=== PATIENT | female | born 1970 | race Caucasian/White ===

== ENCOUNTER 2016-02-29 11:01 | Emergency (ER) ==
--- NOTE | 2016-02-29 11:31 | ED EKG INTERP ---
EKG Interpretation - EKG Time of EKG reading by physician:: 11:26 EKG Read and Signed by:: Yunior Alejandro EKG Interpretation (*Must complete 3 of following elements*): Abnormal Rate: 97 Rhythm: NSR [place]: normal QRS: normal [place] Interval: normal ST Wave: non-specific ST changes
[2016-02-29 11:50] LABS: MANUAL DIFF NEEDED? NO
[2016-02-29 11:53] LABS: BASO% 0.7 % (0.0-0.8); EOS% 0.9 % (0.0-10.0); HEMATOCRIT 48.4 % (37.0-47.0); HEMOGLOBIN 16.4 g/dL (12.0-16.0); IMM GRAN# 0.07 X1000 (0.0-0.04); IMM GRAN% 0.6 % (0.0-0.5); LYMPH# 5.16 X1000 (1.2-3.4); LYMPH% 47.3 % (20.5-51.1); MCH 30.7 PG (27-31); MCHC 33.9 g/dL (33-37); MCV 90.6 FL (81-99); MONO# 0.63 X1000 (0.11-0.59); MONO% 5.8 % (1.7-9.3); MPV 9.3 FL (7.4-10.4); NEUT% 44.7 % (42.2-75.2); PLT 461 X1000 (130-400); RBC 5.34 XMIL (4.2-5.4)
[2016-02-29 12:04] LABS: INR 0.95; PROTIME 10.1 Seconds (9.2-11.7); PTT 28.2 Seconds (22.0-36.0)
--- NOTE | 2016-02-29 12:13 | Diag Imaging Result Document ---
PROCEDURE NAME: CHEST-2 VIEWS - 02/29/2016 CHEST X-RAY 2 VIEWS: COMPARISON: 01/23/2015. FINDINGS: The lungs are normally expanded and clear. Heart size and mediastinal contours are normal. No pneumothorax or pleural effusion. IMPRESSION: Negative exam.
--- NOTE | 2016-02-29 12:36 | EKG Report ---
Test Performed on : 02/29/2016 11:26:20 AM Test Reason : Chest Pain Blood Pressure : / mmHG Vent. Rate : 097 BPM Atrial Rate : 097 BPM P-R Int : 142 ms QRS Dur : 080 ms QT Int : 366 ms P-R-T Axes : 056 038 004 degrees QTc Int : 464 ms Normal sinus rhythm. Possible Left atrial enlargement ST & T wave abnormality, consider inferior ischemia Abnormal ECG No previous ECGs available Unconfirmed Result
[2016-02-29 12:44] LABS: AGAP 18; ALBUMIN 5.5 g/dL (3.5-5.0); ALKALINE PHOSPHATASE 92 U/L (32-104); BUN 9 mg/dL (8-22); CHLORIDE 91 mmol/L (98-107); COSMO 274; GOT 22 U/L (10-30); GPT 26 U/L (10-36); MAGNESIUM 2.1 mg/dL (1.5-2.7); SODIUM 138 mmol/L (136-145); TCO2 29 mmol/L (25-35); TOTAL BILIRUBIN 0.36 mg/dL (0.20-1.00); TOTAL PROTEIN 9.4 g/dL (6.3-8.3)
[2016-02-29 12:53] LABS: CK PROFILE 347 U/L (24-173)
[2016-02-29 13:10] LABS: CK INDEX 0.4 (0.0-2.5); CK-MB 1.41 ng/mL (0.0-5.0)
[2016-02-29] MEDS ORDERED: STADOL IV ONE (15:46)
[2016-02-29] MEDS ORDERED: PHENERGAN IM ONE (15:47)
[2016-02-29] MEDS ORDERED: NUBAIN IM ONE (16:05)
[2016-02-29 16:06] VITALS: BP 143/91
[2016-02-29] MEDS ORDERED: KLOR-CON PO ONE (16:11)
[2016-02-29] MEDS ORDERED: POTASSIUM CHLORIDE 20% LIQUID PO ONE (16:11)
--- NOTE | 2016-02-29 16:18 | PROVIDER DOCUMENTATION ---
HPI-Headache - General Chief Complaint: B/P Problems Stated Complaint: ELEVATED BP Time Seen by Provider: 02/29/16 15:34 Source: patient Allergies/Adverse Reactions: Patient Allergies Allergy/AdvReac Type Severity Reaction Status Date / Time dihydroergotamine mesylate * Allergy Severe ANAPHYLAXIS Verified 02/29/16 16:13 [From Dhe] Iodinated Contrast Media - Allergy Severe ANAPHYLAXIS Verified 02/29/16 16:13 Oral and ketorolac tromethamine * Allergy Severe ANYPHYLAXIS Verified 02/29/16 16:13 [From Toradol] metoclopramide HCl * Allergy Severe ANAPHYLAXIS Verified 02/29/16 16:13 [From Reglan] prednisone Allergy Severe ANAPHYLAXIS Verified 02/29/16 16:13 acetaminophen [From Lortab] Allergy Mild HIVES Verified 02/29/16 16:13 Penicillins Allergy Unknown Unknown Verified 02/29/16 16:13 diphenhydramine HCl * Allergy ELEVATED BP Verified 02/29/16 16:13 [From Benadryl] hydrocodone bitartrate * Allergy HIVES Verified 02/29/16 16:13 [From Lortab] iodine Allergy RASH Verified 02/29/16 16:13 methylprednisolone sodium Allergy SWELLING Verified 02/29/16 16:13 succ... * [From Solu-Medrol] prochlorperazine edisylate * Allergy SWELLING/HI Verified 02/29/16 16:13 [From Compazine] VES prochlorperazine maleate * Allergy SWELLING/HI Verified 02/29/16 16:13 [From Compazine] VES sumatriptan [From Imitrex] Allergy ANAPHYLAXIS Verified 02/29/16 16:13 sumatriptan succinate * Allergy ANAPHYLAXIS Verified 02/29/16 16:13 [From Imitrex] Home Medications: Amlodipine [Norvasc] 10 mg PO DAILY 04/29/14 Clonazepam [Klonopin] 1 mg PO BID 04/29/14 Clonidine [Catapres] 0.3 mg PO 4XDAY 04/29/14 Lisinopril 40 mg PO DAILY 04/29/14 Minoxidil 10 mg PO TID 04/29/14 Spironolactone [Aldactone] 100 mg PO DAILY 04/29/14 Atorvastatin Calcium [Lipitor] 80 mg PO HS 08/18/14 Nitroglycerin Sl [Nitroglycerin] 0.4 mg SL TID 01/23/15 Furosemide [Lasix] 80 mg PO BID 05/31/15 Potassium Chloride [Klor-Con] 20 meq PO BID 05/31/15 Labetalol HCl 200 mg PO BID 06/05/15 Amiloride [Midamor] 10 mg PO DAILY 08/16/15 Gabapentin [Neurontin] 300 mg PO BID 08/16/15 Lacosamide [Vimpat] 50 mg PO BID 01/12/16 - History of Present Illness-Headache Nature of Presenting Problem: patient is a 45 yo f that is well know to the ER with her typical headache that began this morning she has associated symptoms of n/v. she is followed at [facility] for her BP. Headache Location: reports: global Quality of Pain: reports: aching, dull Severity: reports: moderate Onset/Duration: reports: gradual, this morning Timing: reports: still present, constant Headache Context: reports: nothing Headache History: reports: frequent headaches, chronic headaches, history of migraines Headache severity at the maximum: moderate Preceding Symptoms: denies: scotoma Headache Exacerbated by:: reports: light Modifying Factors: improves with: other (light worsening) Associated Symptoms: reports: headache, nausea, vomiting. denies: fainting, dizziness, seizures, sleepy, slurred speech, vision changes, weakness Similar Symptoms Previously?: Yes Recently seen or treated by another doctor?: No Review of Systems - Adult - REVIEW OF SYSTEMS - ADULT Constitutional: denies: chills, fever Eyes: denies: double vision Ears, Nose, Mouth & Throat: denies: ear pain, sinus problem, throat pain, throat swelling Cardiovascular: denies: chest pain, palpitations, syncope Respiratory: denies: chronic cough, cough, shortness of breath, wheezing Gastrointestinal: reports: nausea, vomiting. denies: abdominal pain, diarrhea Genitourinary: reports: no symptoms reported Musculoskeletal: reports: no symptoms reported Integumentary: reports: no symptoms reported Neurological: reports: headache/migraines. denies: dizziness/vertigo, seizure Psychiatric: reports: no symptoms reported Endocrine: reports: no symptoms reported Hematologic/Lymphatic: reports: no symptoms reported Allergic/Immunologic: reports: no symptoms reported All Other Systems: Reviewed and Negative Past History - Adult - PAST MEDICAL HISTORY-ADULT Review of Records: reports: Old Records Reviewed, Nursing Assessment Review, Medications Reviewed, Social history reviewed & non-contributory. Major Childhood Illnesses: reports: denies history Cardiovascular: reports: cardiac disease (left ventricle damage), CHF, HTN, hyperlipidemia Respiratory: reports: lung disease (pulm htn) Gastrointestinal: reports: GERD, GI bleed Obstetrical/Gynecological: reports: ectopic , endometriosis Genitourinary: reports: kidney disease Musculoskeletal: reports: denies history Neurological: reports: headaches/migraines, Seizures/Epilepsy, TIA, other Psychiatric: reports: other Endocrine/Immune: reports: denies history Other Conditions: reports: denies history Additional History: Freq ER visits - PRIOR SURGERIES/PROCEDURES Surgical/Procedure History: reports: reviewed, not pertinent, hysterectomy, BTL , , tonsillectomy, orthopedic (extremity) (right knee; wrist), other ( arthroscopy; carpal tunnel, exploratory lap) - PRIOR HOSPITALIZATIONS Prior Hospitalizations: reports: for other non-related - IMMUNIZATION STATUS Childhood Immunizations: UTD, See Nurse Assessment Flu Vaccine: See Nurse Assessment - FAMILY HISTORY Family History: CAD under 55yo, migraines, HTN Physical Exam- Neurological - Physical Exam-Neuro Initial Vital Signs Reviewed: Yes General Appearance: alert, no apparent distress Eye Exam: bilateral eye: normal inspection, PERRL HENMT: normocephalic/atraumatic, moist mucous membranes, normal ENT inspection Head Injury: no evidence of injury. negative: flap, lacerations Neck: full range of motion, normal inspection. negative: lymphadenopathy Respiratory: lungs clear, normal breath sounds, no respiratory distress, no accessory muscle use Cardiovascular: no gallop, no murmur, tachycardia Abdominal Exam: normal bowel sounds, non tender, soft, no organomegaly, no pulsatile mass Lymphatic: no adenopathy. 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 Exam: normal hearing, normal speech, PERRL Motor/Sensory: no motor deficit, no sensory deficit Neurologic: grossly normal, no motor/sensory deficits Integumentary: normal color, warm/dry Psych/Mental Status: normal mood/affect, normal thought content, normal thought process, oriented x 3 - Glascow Coma Scale Best Eye Response: (3) open to voice Best Motor Response: (6) obeys commands Total Glascow Score: 15 Progress - PLAN OF CARE/RESULTS Progress/Plan/Lab Results: Vital Signs Temp Pulse Resp BP Pulse Ox 02/29/16 16:00 97 H 25 H 143/91 97 02/29/16 11:20 98.2 F 126 H 18 152/115 100 dihydroergotamine mesylate * [From Dhe] Allergy (Severe, Verified 02/29/16 16:13 ) ANAPHYLAXIS Iodinated Contrast Media - Oral and Allergy (Severe, Verified 02/29/16 16:13) ANAPHYLAXIS ketorolac tromethamine * [From Toradol] Allergy (Severe, Verified 02/29/16 16:13 ) ANYPHYLAXIS metoclopramide HCl * [From Reglan] Allergy (Severe, Verified 02/29/16 16:13) ANAPHYLAXIS prednisone Allergy (Severe, Verified 02/29/16 16:13) ANAPHYLAXIS acetaminophen [From Lortab] Allergy (Mild, Verified 02/29/16 16:13) HIVES Penicillins Allergy (Unknown, Verified 02/29/16 16:13) Unknown diphenhydramine HCl * [From Benadryl] Allergy (Verified 02/29/16 16:13) ELEVATED BP hydrocodone bitartrate * [From Lortab] Allergy (Verified 02/29/16 16:13) HIVES iodine Allergy (Verified 02/29/16 16:13) RASH methylprednisolone sodium succ... * [From Solu-Medrol] Allergy (Verified 16:13) SWELLING prochlorperazine edisylate * [From Compazine] Allergy (Verified 02/29/16 16:13) SWELLING/HIVES prochlorperazine maleate * [From Compazine] Allergy (Verified 02/29/16 16:13) SWELLING/HIVES sumatriptan [From Imitrex] Allergy (Verified 02/29/16 16:13) ANAPHYLAXIS sumatriptan succinate * [From Imitrex] Allergy (Verified 02/29/16 16:13) ANAPHYLAXIS Amlodipine [Norvasc] 10 mg PO DAILY 04/29/14 Clonazepam [Klonopin] 1 mg PO BID 04/29/14 Clonidine [Catapres] 0.3 mg PO 4XDAY 04/29/14 Lisinopril 40 mg PO DAILY 04/29/14 Minoxidil 10 mg PO TID 04/29/14 Spironolactone [Aldactone] 100 mg PO DAILY 04/29/14 Atorvastatin Calcium [Lipitor] 80 mg PO HS 08/18/14 Nitroglycerin Sl [Nitroglycerin] 0.4 mg SL TID 01/23/15 Furosemide [Lasix] 80 mg PO BID 05/31/15 Potassium Chloride [Klor-Con] 20 meq PO BID 05/31/15 Labetalol HCl 200 mg PO BID 06/05/15 Levetiracetam [Keppra] 1,000 mg PO BID #120 tablet 06/05/15 Amiloride [Midamor] 10 mg PO DAILY 08/16/15 Gabapentin [Neurontin] 300 mg PO BID 08/16/15 Promethazine [Phenergan] 25 mg SD Q6H PRN PRN #12 supp 08/16/15 Lacosamide [Vimpat] 50 mg PO BID 01/12/16 Ondansetron [Zofran Odt] 4 mg PO Q8H PRN PRN #20 tab.rapdis 02/29/16 Laboratory 02/29/16 02/29/16 02/29/16 11:35 11:35 11:35 WBC RBC Hgb Hct MCV MCH MCHC RDW Std Deviation Plt Count MPV Immature Gran % (Auto) Neut % (Auto) Lymph % (Auto) [place] % (Auto) Eos % (Auto) Baso % (Auto) Immature Gran # (Auto) Neut # (Auto) Lymph # (Auto) [place] # (Auto) Eos # (Auto) Baso # (Auto) PT 10.1 INR 0.95 PTT (Actin FS) 28.2 D-Dimer 0.50 Sodium Potassium Chloride Carbon Dioxide Anion Gap BUN Creatinine Estimated GFR/1.73 m2 BUN/Creatinine Ratio Glucose Calculated Osmolality Calcium Magnesium Total Bilirubin AST ALT Alkaline Phosphatase Creatine Kinase Creatine Kinase Index CK-MB (CK-2) Troponin T < 0.010 Fra-[id number]-[id number] Pept Total Protein Albumin Globulin Albumin/Globulin Ratio 02/29/16 02/29/16 02/29/16 11:35 11:35 11:35 WBC 10.91 H RBC 5.34 Hgb 16.4 H Hct 48.4 H MCV 90.6 MCH 30.7 MCHC 33.9 RDW Std Deviation 12.8 Plt Count 461 H MPV 9.3 Immature Gran % (Auto) 0.6 H Neut % (Auto) 44.7 Lymph % (Auto) 47.3 [place] % (Auto) 5.8 Eos % (Auto) 0.9 Baso % (Auto) 0.7 Immature Gran # (Auto) 0.07 H Neut # (Auto) 4.87 Lymph # (Auto) 5.16 H [place] # (Auto) 0.63 H Eos # (Auto) 0.10 Baso # (Auto) 0.08 PT INR PTT (Actin FS) D-Dimer Sodium 138 Potassium 3.0 L Chloride 91 L Carbon Dioxide 29 Anion Gap 18 BUN 9 Creatinine 0.8 Estimated GFR/1.73 m2 > 60 BUN/Creatinine Ratio 11 Glucose 96 Calculated Osmolality 274 Calcium 10.0 Magnesium 2.1 Total Bilirubin 0.36 AST 22 ALT 26 Alkaline Phosphatase 92 Creatine Kinase 347 H Creatine Kinase Index 0.4 CK-MB (CK-2) 1.41 Troponin T Idl-L-Yryhnjtjvhh Pept 26 Total Protein 9.4 H Albumin 5.5 H Globulin 3.9 Albumin/Globulin Ratio 1.4 Orders Category Date Time Status CHEST-2 VIEWS [RAD] Stat Exams 02/29/16 11:24 Draft CBC WITH ELECTRONIC DIFF [HEME] Stat Lab 02/29/16 11:35 Completed CK PROFILE [SP CHEM] Stat Lab 02/29/16 11:35 Completed COMPREHENSIVE METABOLIC PANEL [CHEM] Stat Lab 02/29/16 11:35 [address] D-D[address]ER [address] [COAG] Stat Lab 02/29/16 11:35 Completed MAGNESIUM [CHEM] Stat Lab 02/29/16 11:35 Completed PRO B-NATRIURETIC PEPTIDE Stat Lab 02/29/16 11:35 Completed PROTIME WITH INR [COAG] Stat Lab 02/29/16 11:35 Completed PTT [COAG] Stat Lab 02/29/16 11:35 Completed TROPONIN T Stat Lab 02/29/16 11:35 Completed Butorphanol [Stadol] Med 02/29/16 15:46 Discontinued 2 mg IV NOW ONE Nalbuphine [Nubain] Med 02/29/16 16:05 Discontinued 20 mg IM NOW ONE Potassium Chloride 20% Liquid Med 02/29/16 16:11 Discontinued 40 meq PO NOW ONE Potassium Chloride E.r. [Klor-Con] Med 02/29/16 16:11 Discontinued 60 meq PO NOW ONE Promethazine [Phenergan] Med 02/29/16 15:47 Discontinued 25 mg IM NOW ONE EKG [EKG] Stat Ther 02/29/16 11:24 Draft pt will be d/c home f/u with pcp, pt was clinically and neurologically stable Departure - Departure Time of Disposition Order: 16:19 DIAGNOSIS: Hypokalemia Headache Qualifiers: Headache type: unspecified Headache chronicity pattern: chronic headache Intractability: not intractable Qualified Code(s): R51 - Headache Hypertension Qualifiers: Hypertension type: essential hypertension Qualified Code(s): I10 - Essential ( primary) hypertension Disposition: HOME 01 Certified Medical Emergency: Emergent Condition: Stable Additional Instructions: ED Follow Up Instructions: You have been treated by a care provider in the Emergency Department. These instructions are being provided to you so you can have an understanding of how to care for yourself upon discharge. Upon discharge from the Emergency Department, you are responsible for making arrangements for follow-up care by a physician of your choice. Take all prescribed medications as directed. Return to the Emergency Department immediately for any new or worsening symptoms. You may call the Physician Referral phone number at [phone] to obtain a list of Physicians who are taking new patients. Prescriptions: Ondansetron [Zofran Odt] 4 mg PO Q8H PRN PRN #20 tab.rapdis PRN Reason: Vomiting Referrals: Varun Ayala MD [Primary Care Provider] - Call for Appoint. 1-2days Instructions: Migraine Headache, [id number], Hypokalemia, Hypertension, Easy- to-Read Attestation - Scribe Verification/Attestation Scribe:: Naldo Montoya Acting as Scribe for:: Yunior Alejandro Scribe documention review:: This chart was documented by a scribe and accurately reflects the service the provider performed and the decisions made by the provider. Physician Attestation - Physician Attestation I, the provider, attest to the following statement:: Yunior Alejandro Physician documentation Attestation:: This documentation recorded by the scribe accurately reflects the service I personally performed and the decisions made by me.
== END 2016-02-29 16:55 | disposition home or self-care (01) ==
LOC: ED 11:01
DX: I10 Essential (primary) hypertension (principal); R51 Headache; E87.6 Hypokalemia; I50.9 Heart failure, unspecified; E78.5 Hyperlipidemia, unspecified; I27.2 Other secondary pulmonary hypertension; K21.9 Gastro-esophageal reflux disease without esophagitis; N80.9 Endometriosis, unspecified; R56.9 Unspecified convulsions; Z86.73 Personal history of transient ischemic attack (TIA), and cerebral infarction without residual deficits; Z79.899 Other long term (current) drug therapy; Z82.49 Family history of ischemic heart disease and other diseases of the circulatory system
CPT/HCPCS: 71020; 80053; 82550; 82553; 83735; 83880; 84484; 85025; 85379; 85610; 85730; 93005; 96372; J0595; J2300; J2550

== ENCOUNTER 2016-04-27 18:11 | Emergency (ER) ==
[2016-04-27] MEDS ORDERED: PHENERGAN PO ONE (18:58)
[2016-04-27] MEDS ORDERED: NORCO-5 PO ONE (18:58)
[2016-04-27] MEDS ORDERED: NUBAIN IM ONE (19:14)
[2016-04-27] MEDS ORDERED: PHENERGAN IM ONE (19:14)
--- NOTE | 2016-04-27 20:05 | PROVIDER DOCUMENTATION ---
HPI-Head Injury - General Chief Complaint: Fall Stated Complaint: FACIAL INJURY Time Seen by Provider: 04/27/16 18:54 Source: patient, family Allergies/Adverse Reactions: Patient Allergies Allergy/AdvReac Type Severity Reaction Status Date / Time dihydroergotamine mesylate * Allergy Severe ANAPHYLAXIS Verified 04/18/16 17:20 [From Dhe] Iodinated Contrast Media - Allergy Severe ANAPHYLAXIS Verified 04/18/16 17:20 Oral and ketorolac tromethamine * Allergy Severe ANYPHYLAXIS Verified 04/18/16 17:20 [From Toradol] metoclopramide HCl * Allergy Severe ANAPHYLAXIS Verified 04/18/16 17:20 [From Reglan] prednisone Allergy Severe ANAPHYLAXIS Verified 04/18/16 17:20 acetaminophen [From Lortab] Allergy Mild HIVES Verified 04/18/16 17:20 Penicillins Allergy Unknown Unknown Verified 04/18/16 17:20 diphenhydramine HCl * Allergy ELEVATED BP Verified 04/18/16 17:20 [From Benadryl] hydrocodone bitartrate * Allergy HIVES Verified 04/18/16 17:20 [From Lortab] iodine Allergy RASH Verified 04/18/16 17:20 methylprednisolone sodium Allergy SWELLING Verified 04/18/16 17:20 succ... * [From Solu-Medrol] prochlorperazine edisylate * Allergy SWELLING/HI Verified 04/18/16 17:20 [From Compazine] VES prochlorperazine maleate * Allergy SWELLING/HI Verified 04/18/16 17:20 [From Compazine] VES sumatriptan [From Imitrex] Allergy ANAPHYLAXIS Verified 04/18/16 17:20 sumatriptan succinate * Allergy ANAPHYLAXIS Verified 04/18/16 17:20 [From Imitrex] Home Medications: Home Medication List Medication Instructions Recorded Confirmed Last Taken Type Amlodipine [Norvasc] 10 mg PO DAILY 04/29/14 04/04/16 04/04/16 History Clonazepam [Klonopin] 1 mg PO BID 04/29/14 04/04/16 01/12/16 06:00 History Clonidine [Catapres] 0.3 mg PO 4XDAY 04/29/14 04/04/16 04/04/16 15:00 History Lisinopril 40 mg PO DAILY 04/29/14 04/04/16 04/04/16 07:30 History Minoxidil 10 mg PO TID 04/29/14 04/04/16 04/04/16 11:45 History Spironolactone [Aldactone] 100 mg PO DAILY 04/29/14 04/04/16 04/04/16 07:30 History Atorvastatin Calcium [Lipitor] 80 mg PO HS 08/18/14 04/04/16 04/03/16 History Nitroglycerin Sl [Nitroglycerin] 0.4 mg SL TID 01/23/15 04/04/16 04/04/16 11:45 History Potassium Chloride [Klor-Con] 40 meq PO BID 05/31/15 04/04/16 04/04/16 11:45 History Labetalol HCl 300 mg PO BID 06/05/15 04/04/16 04/04/16 07:30 History Levetiracetam [Keppra] 1,000 mg PO BID #120 tablet 06/05/15 04/04/16 04/04/16 06 :30 Rx Amiloride [Midamor] 10 mg PO DAILY 08/16/15 04/02/16 04/04/16 History Gabapentin [Neurontin] 300 mg PO BID 08/16/15 04/04/16 2 Days Ago History Lacosamide [Vimpat] 100 mg PO BID 01/12/16 04/04/16 04/04/16 06:30 History Promethazine [Phenergan] 50 mg MD Q6H PRN PRN 04/04/16 04/04/16 Unknown History - History of Present Illness-Head Injury Nature of Presenting Problem: This pt, who has frequent falls and uses a walker, presents today after tripping and striking the right side of her face on a door. No LOC. No laceration. No vision changes. There is mild swelling and bruising to area. No other injuries or complaints. Head Injury Location: reports: temporal Other injuries associated with incident:: reports: head Quality of Pain: reports: aching Severity: reports: mild Onset/Duration: reports: just prior to arrival Timing: reports: still present Method of Injury: reports: direct blow Any recent trauma/injury?: reports: minor, to head Loss of Consciousness: no loss of consciousness Similar Symptoms Previously?: Yes Recently seen or treated by another doctor?: No Review of Systems - Adult - REVIEW OF SYSTEMS - ADULT Constitutional: reports: no symptoms reported. denies: chills, fatique Eyes: reports: no symptoms reported. denies: discharge, dry eyes Ears, Nose, Mouth & Throat: reports: no symptoms reported. denies: ear discharge, ear pain Cardiovascular: reports: no symptoms reported. denies: chest pain, edema Respiratory: reports: no symptoms reported. denies: chronic cough, cough Gastrointestinal: reports: no symptoms reported. denies: abdominal pain, hematemesis Genitourinary: reports: no symptoms reported. denies: dysuria, discharge Musculoskeletal: reports: no symptoms reported. denies: bone pain, back pain Integumentary: reports: see HPI. denies: mole changes, nail changes Neurological: reports: no symptoms reported. denies: ataxia, dizziness/vertigo , headache/migraines Psychiatric: reports: no symptoms reported. denies: anxiety, anti-depressant use Endocrine: reports: no symptoms reported Hematologic/Lymphatic: reports: no symptoms reported Allergic/Immunologic: reports: no symptoms reported All Other Systems: Reviewed and Negative Past History - Adult - PAST MEDICAL HISTORY-ADULT Review of Records: reports: Old Records Reviewed, Nursing Assessment Review, Medications Reviewed, Social history reviewed & non-contributory. Major Childhood Illnesses: reports: denies history Cardiovascular: reports: cardiac disease (left ventricle damage), CHF, HTN, hyperlipidemia Respiratory: reports: lung disease (pulm htn) Gastrointestinal: reports: GERD, GI bleed Obstetrical/Gynecological: reports: ectopic , endometriosis Genitourinary: reports: kidney disease Musculoskeletal: reports: denies history Neurological: reports: headaches/migraines, Seizures/Epilepsy, TIA, other Psychiatric: reports: other Endocrine/Immune: reports: denies history Other Conditions: reports: denies history Additional History: Freq ER visits - PRIOR SURGERIES/PROCEDURES Surgical/Procedure History: reports: reviewed, not pertinent, hysterectomy, BTL , , tonsillectomy, orthopedic (extremity) (right knee; wrist), other ( arthroscopy; carpal tunnel, exploratory lap) - PRIOR HOSPITALIZATIONS Prior Hospitalizations: reports: for other non-related - IMMUNIZATION STATUS Childhood Immunizations: See Nurse Assessment Flu Vaccine: See Nurse Assessment - FAMILY HISTORY Family History: CAD under 55yo, migraines, HTN Physical Exam- Neurological - Physical Exam-Neuro Initial Vital Signs Reviewed: Yes General Appearance: appears well, alert, no apparent distress Eye Exam: bilateral eye: normal inspection, PERRL, EOMI HENMT: moist mucous membranes, normal ENT inspection, other (mild swelling and bruising to R temporal area) Head Injury: contusions, swelling, tenderness. negative: active bleeding, flap , lacerations Neck: non-tender, full range of motion, supple, normal inspection. negative: C- spine tenderness, limited range of motion, lymphadenopathy, meningismus Respiratory: chest non-tender, lungs clear Cardiovascular: normal peripheral pulses, regular rate, rhythm Abdominal Exam: normal bowel sounds, non tender, soft 3d technologist Exam: normal hearing, normal speech, PERRL. negative: abnormal speech, facial asymmetry, facial droop, facial paresthesias, facial weakness, gaze palsy , tongue deviation to R, tongue deviation to L Coordination/Gait: normal finger to nose Motor/Sensory: no motor deficit, no sensory deficit. negative: sensory deficit , weak motor strength RUE, weak motor strength LUE, weak motor strength RLE, weak motor strength LLE Neurologic: 3d technologist II-XII nml as tested, no motor/sensory deficits Integumentary: normal turgor, warm/dry, swelling, tenderness Psych/Mental Status: normal mood/affect, normal thought content, normal thought process, oriented x 3 - Glascow Coma Scale Best Eye Response: (4) open spontaneously Best Verbal Response: (5) oriented Best Motor Response: (6) obeys commands Total Glascow Score: 15 Progress - PLAN OF CARE/RESULTS Progress/Plan/Lab Results: Orders Category Date Time Status FACIAL BONES [RAD] Stat Exams 04/27/16 18:59 Taken Hydrocodone/APAP 5 mg/325 mg [Mcdowell-5] Med 04/27/16 18:58 Discontinued 1 each PO NOW ONE Nalbuphine [Nubain] Med 04/27/16 19:14 Discontinued 10 mg IM NOW ONE Promethazine [Phenergan] Med 04/27/16 19:14 Discontinued 25 mg IM NOW ONE Promethazine [Phenergan] Med 04/27/16 18:58 Discontinued 25 mg PO NOW ONE Vital Signs Temp Pulse Resp BP Pulse Ox 04/27/16 18:24 98.1 F 86 16 169/99 98 dihydroergotamine mesylate * [From Dhe] Allergy (Severe, Verified 04/18/16 17:20 ) ANAPHYLAXIS Iodinated Contrast Media - Oral and Allergy (Severe, Verified 04/18/16 17:20) ANAPHYLAXIS ketorolac tromethamine * [From Toradol] Allergy (Severe, Verified 04/18/16 17:20 ) ANYPHYLAXIS metoclopramide HCl * [From Reglan] Allergy (Severe, Verified 04/18/16 17:20) ANAPHYLAXIS prednisone Allergy (Severe, Verified 04/18/16 17:20) ANAPHYLAXIS acetaminophen [From Lortab] Allergy (Mild, Verified 04/18/16 17:20) HIVES Penicillins Allergy (Unknown, Verified 04/18/16 17:20) Unknown diphenhydramine HCl * [From Benadryl] Allergy (Verified 04/18/16 17:20) ELEVATED BP hydrocodone bitartrate * [From Lortab] Allergy (Verified 04/18/16 17:20) HIVES iodine Allergy (Verified 04/18/16 17:20) RASH methylprednisolone sodium succ... * [From Solu-Medrol] Allergy (Verified 17:20) SWELLING prochlorperazine edisylate * [From Compazine] Allergy (Verified 04/18/16 17:20) SWELLING/HIVES prochlorperazine maleate * [From Compazine] Allergy (Verified 04/18/16 17:20) SWELLING/HIVES sumatriptan [From Imitrex] Allergy (Verified 04/18/16 17:20) ANAPHYLAXIS sumatriptan succinate * [From Imitrex] Allergy (Verified 04/18/16 17:20) ANAPHYLAXIS Amlodipine [Norvasc] 10 mg PO DAILY 04/29/14 Clonazepam [Klonopin] 1 mg PO BID 04/29/14 Clonidine [Catapres] 0.3 mg PO 4XDAY 04/29/14 Lisinopril 40 mg PO DAILY 04/29/14 Minoxidil 10 mg PO TID 04/29/14 Spironolactone [Aldactone] 100 mg PO DAILY 04/29/14 Atorvastatin Calcium [Lipitor] 80 mg PO HS 08/18/14 Nitroglycerin Sl [Nitroglycerin] 0.4 mg SL TID 01/23/15 Potassium Chloride [Klor-Con] 40 meq PO BID 05/31/15 Labetalol HCl 300 mg PO BID 06/05/15 Levetiracetam [Keppra] 1,000 mg PO BID #120 tablet 06/05/15 Amiloride [Midamor] 10 mg PO DAILY 08/16/15 Gabapentin [Neurontin] 300 mg PO BID 08/16/15 Lacosamide [Vimpat] 100 mg PO BID 01/12/16 Promethazine [Phenergan] 50 mg MD Q6H PRN PRN 04/04/16 - XRAY 1 XRAY Study: Facial Bones XRAY Interpretation: nad (myself and DR. Martinez) Departure - Departure Time of Disposition Order: 20:04 DIAGNOSIS: Contusion of face Qualifiers: Encounter type: initial encounter Qualified Code(s): S00.83XA - Contusion of other part of head, initial encounter Disposition: HOME 01 Certified Medical Emergency: Urgent Condition: Good Additional Instructions: Ice area. Follow up with your primary care provider. ED Follow Up Instructions: You have been treated by a care provider in the Emergency Department. These instructions are being provided to you so you can have an understanding of how to care for yourself upon discharge. Upon discharge from the Emergency Department, you are responsible for making arrangements for follow-up care by a physician of your choice. Take all prescribed medications as directed. Return to the Emergency Department immediately for any new or worsening symptoms. You may call the Physician Referral phone number at [phone] to obtain a list of Physicians who are taking new patients. Attestation - Physician/ MALCOLM Attestation Patient care was provided by Advanced Practice Provider:: Yes Advanced Practice Provider:: Juan Beal Advanced Practice Provider documentation review:: The Mid-level provider documentation, treatment plan and medical decision making was reviewed by the physician who agrees with all treatment and medical decision making by the P.
[2016-04-27 20:23] VITALS: BP 153/104
--- NOTE | 2016-04-28 07:12 | Diag Imaging Result Document ---
PROCEDURE NAME: FACIAL BONES - 04/27/2016 FACIAL BONES, FOUR VIEWS: FINDINGS: No sinus opacification. No air fluid levels. No facial fracture or dislocation identified. IMPRESSION: No facial fracture. If clinical suspicion persists then a CT is recommended.
== END 2016-04-27 20:23 | disposition home or self-care (01) ==
LOC: P.ED 18:11
DX: S00.83XA Contusion of other part of head, initial encounter (principal); S09.90XA Unspecified injury of head, initial encounter; R29.6 Repeated falls; W01.0XXA Fall on same level from slipping, tripping and stumbling without subsequent striking against object, initial encounter; R51 Headache; I10 Essential (primary) hypertension; E78.5 Hyperlipidemia, unspecified; K21.9 Gastro-esophageal reflux disease without esophagitis; R56.9 Unspecified convulsions; Z86.73 Personal history of transient ischemic attack (TIA), and cerebral infarction without residual deficits; R22.0 Localized swelling, mass and lump, head; Z79.899 Other long term (current) drug therapy
CPT/HCPCS: 70150; 96372; 96374; J2300; J2550